=== PATIENT | male | born 1945 | race Caucasian/White ===

== ENCOUNTER → 2017-02-28 | Outpatient (CLI) | payer OTHER ==
--- NOTE | 2017-02-28 21:58 | DI ---
CT ABDOMEN SCAN WITHOUT AND WITH IV CONTRAST, 02/28/2017 12:24 PM : Clinical History: Umbilical hernia. Previous Exam: None at this facility. Scans are performed from the lower lung bases through the liver and kidneys without and with IV contr ast. Sagittal and coronal images are generated. 95 ml of Isovue 300 was injected IV. Low density oral barium contrast (Volumen - low density CT enterography oral contrast) was administered for all phase s of the exam. The pre-and postcontrast scans through the abdomen and pelvis were performed while the patient was performing a mild "situp" maneuver and the Valsalva maneuver. The lung bases are clear. The liver size is at the upper limits of normal. There is severe diffuse fa tty infiltration of the liver. The gallbladder is grossly normal. Both adrenal glands and the pancrea s are normal. Mild splenomegaly is present. Both kidneys are normal in size, shape, position and cont our. There is no hydronephrosis or hydroureter. No renal or ureteral calculi are present. There are n o abnormal retrocrural or periaortic nodes. There is no ascites. READIN. The liver size is at the upper limits of normal. There is diffuse severe fatty infiltration of th e liver. 2. Mild splenomegaly. CT PELVIS SCAN WITHOUT AND WITH IV CONTRAST, 02/28/2017 12:24 PM: Clinical History: Umbilical hernia. Previous Exam: None at this facility. Scans are performed from just superior to the umbilicus to the symphysis pubis without and with IV co ntrast. This is the same bolus of IV contrast used for the CT scans of the abdomen. Scans through the lower abdomen and pelvis show no masses or abnormal fluid collections. There is no adenopathy. The appendix is normal. The small bowel, terminal ileum, and ileocecal valve are intact. The colon is also normal. There is a very small umbilical hernia through which only a minimal amount of mesenteric fat has herniated. READIN. There is a very small umbilical hernia through which only a minimal amount of mesenteric fat has herniated. 2. The remainder of the examination is normal.
== END ==
LOC: CT 12:18
PROVIDERS: ATTEND Nurse Practitioner Acute Care
DX: K42.9 Umbilical hernia without obstruction or gangrene (principal); R16.1 Splenomegaly, not elsewhere classified
CPT/HCPCS: 74178

== ENCOUNTER → 2017-03-20 | Outpatient (CLI) | payer OTHER ==
--- NOTE | 2017-03-20 11:48 | PE ---
[facility] [place] Interpretive Statements [id number]
== END ==
LOC: RT 09:52
PROVIDERS: ATTEND Nurse Practitioner Acute Care
DX: J44.9 Chronic obstructive pulmonary disease, unspecified (principal)
CPT/HCPCS: 94060

== ENCOUNTER → 2017-06-23 | Outpatient (CLI) | payer OTHER ==
--- NOTE | 2017-06-23 16:13 | DI ---
History: dizziness. Impaired balance. Intermittent vision changes. Comparison: None Findings The cerebellar vermis is diminutive in size, and there is subsequent prominence of the cisterna magna . These findings can be seen on sagittal images, age 14 and 24, and T1 axial images, ages 6 and [age]. The ventricles and sulci are mildly prominent, but unremarkable for the patient's age There is no acute CVA. There is no hemorrhage. There are no space-occupying lesions and there is no mass effect. There are no extra-axial fluid collections There is mild opacification of right mastoid air cells which could indicate a acute or chronic mastoi ditis. Incidental is made of a 1 cm retention cyst in the right maxillary sinus. Postcontrast images demonstrate no enhancing lesions. 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 Th is finding is demonstrated best on series 401, image 12, and on series 601 images 5 and 6. Mild age related atrophic changes Mild opacification of the right mastoid air cells which could indicate acute or chronic mastoiditis 1 cm retention cyst in the right maxillary sinus
== END ==
LOC: MRI 10:09
PROVIDERS: ATTEND Nurse Practitioner Acute Care
DX: R26.9 Unspecified abnormalities of gait and mobility (principal); R42 Dizziness and giddiness; J34.1 Cyst and mucocele of nose and nasal sinus
CPT/HCPCS: 36415; 70553; 82565; 84520

== ENCOUNTER 2019-04-15 16:59 | Observation (INO) ==
[~2019-04-15 16:59] MED LIST: ACETAMINOPHEN 500 MG TABLET PO ONE; CELECOXIB 200 MG CAPSULE PO ONE; GABAPENTIN 300 MG CAPSULE PO ONE; LIDOCAINE W/ SODIUM BICARB 0.5 ML SYR ONE; LIDOCAINE W/ SODIUM BICARB 0.5 ML SYR SUBD ONE; Lactated Ringers 1,000 ML PRIMARY IV ONE; Lactated Ringers 1,000 ML PRIMARY IV SCH; Nasal Sanitizer POPSWAB ampule 3 AMP (Nozin) PREOP DOSE ENOS SCH; PANTOPRAZOLE 20 MG TABLET.DR PO ONE; ceFAZolin Inj 2gm (Premix) 2 GM/50 ML BAG IV ONE
[2019-04-15] MEDS ORDERED: DEXTROSE 50%-WATER SYRINGE 50 ML SYRINGE IVP ONE (17:25)
[2019-04-15] MEDS ORDERED: DEXTROSE 50%-WATER SYRINGE 50 ML SYRINGE ONE (17:49)
[2019-04-15] MEDS ORDERED: ROCURONIUM 10 MG/1 ML - 5 ML VIAL IVP ONE (19:29)
[2019-04-15] MEDS ORDERED: MIDAZOLAM HCL 2 MG/2 ML VIAL ONE (19:30)
[2019-04-15] MEDS ORDERED: fentaNYL Inj 250 MCG/5 ML VIAL ONE (19:30)
[2019-04-15] MEDS ORDERED: PROPOFOL 10 MG/1 ML (200 MG/20 ML) VIAL IV ONE (19:31)
[2019-04-15] MEDS ORDERED: D5-LR 1,000 ML PRIMARY IV ONE (19:58)
[2019-04-15] MEDS ORDERED: D5-LR 1,000 ML PRIMARY IV SCH (20:00)
[2019-04-15] MEDS ORDERED: BUPivacaine Inj 0.25% PF - 10ml vial ONE ×2 (20:11→22:09)
[2019-04-15] MEDS ORDERED: EPINEPHrine Inj (1:1,000) 30mg/30ml vial ONE (20:11)
[2019-04-15] MEDS ORDERED: BUPIVACAINE 0.5% W/EPI MPF -30 ML VIAL IV ONE (20:35)
[2019-04-15] MEDS ORDERED: Ropivacaine 0.2% VIAL 20 ML ONE (20:35)
[2019-04-15] MEDS ORDERED: ceFAZolin Inj 2gm (Premix) 2 GM/50 ML BAG IV ONE (21:46)
[2019-04-15] MEDS ORDERED: ePHEDrine Inj 50 MG/ML AMP ONE (21:48)
[2019-04-15] MEDS ORDERED: GLYCOPYRROLATE 0.2 MG/1 ML VIAL ONE (21:50)
[2019-04-15] MEDS ORDERED: TRANEXAMIC ACID 1,000 MG / 10 ML VIAL ONE (21:52)
[2019-04-15] MEDS ORDERED: Lactated Ringers 1,000 ML PRIMARY IV ONE (22:10)
[2019-04-15] MEDS ORDERED: BETAMET ACET/BETAMET NA PH 6 MG/1 ML - 5 ML ONE (22:10)
--- NOTE | 2019-04-15 23:16 | ORTHO.OP ---
Surgery Date: 04/15/19 Preoperative Diagnosis: right shoulder impingement, AC OA, SLAP tear, biceps tendinitis, partial RCT Postoperative Diagnosis: same Procedure: right shoulder scope TRACIE, A-Jj, A-tenodesis, debride SLAP and RCT Surgeon: Gio Walker MD Blender Operator: La Shin, PASophiaC Anesthesia Provider: Stacy Lu CRNA Anesthesia Type: General, Regional Estimated Blood Loss (mL): 15 Fluids: 1300 mL LR Pathology: none Findings: See Operative Note Indications: See Operative Note Complications: None
[2019-04-15] MEDS ORDERED: ONDANSETRON 4 MG/2 ML VIAL IVP PRN ×2 (23:17→23:38)
[2019-04-15] MEDS ORDERED: ATROPINE SULFATE 0.4 MG/1 ML VIAL IVP PRN (23:38)
[2019-04-15] MEDS ORDERED: LIDOCAINE W/ SODIUM BICARB 0.5 ML SYR SUBD PRN (23:38)
--- NOTE | 2019-04-15 23:38 | CRNA.PROGR ---
Anesthesia Time - Procedure/Recovery Time Start Date: 04/15/19 End Date: 04/15/19 Anesthesia : Time In: 21:05 Anesthesia : Time Out: 23:25 Anesthesia : Total Time: 140 - Block Time Start Date: 04/15/19 End Date: 04/15/19 PreOp Block : Time In: 20:40 PreOp Block : Time Out: 20:52 PreOp Block : Total Time: 12 - Total Anesthesia Time Total Anesthesia Time (minutes): 152 - Other Weight: 91.444 kg Height: 5 ft 8 in Body Mass Index (BMI): 30.6 Physical Status: P3 Anesthesia Type: General Anesthesia : ET PostOp Pain Management: Brachial Plexus (Single Injection) (Analgesia block)
--- NOTE | 2019-04-15 23:41 | CRNA.PROCE ---
Nerve Block Documentation - - Safety Measures: Time Out Taken, Site Verified - - Type of Nerve Block Used: Right Interscalene Block Position for Nerve Block: Supine Moniters Used During Block: EKG, SPO2, NIBP Oxygen Supplemented: Yes Sedation Used - Enter Amount in Comment Field [ANES.SEDAT]: Midazolam (mg): Yes (1), Fentanyl (mcg): Yes (100) Skin Prep Used: ChloroPrep (Twice) Technique: Nerve Stimulator Nerve Block Needle Used: 40 mm ProBlk II Stimulation Hz: 1 Stimulation Staring mA: 1.4 Stimulation Ending mA: 0.6 Local Anesthetic - Enter Amt in Comment Field [ANES.LOCNB]: 0.5 % Bupivicaine with Epinephrine 1:200,000 (mL): Yes (15), Other Anesthetic: Yes (Ropivicaine 0.7% 15 ml) - - PreOp Block : Time In: 20:40 PreOp Block : Time Out: 20:53 Anesthesia Time - Other Weight: 91.444 kg Height: 5 ft 8 in Body Mass Index (BMI): 30.6
--- NOTE | 2019-04-15 23:43 | CRNA.PROGR ---
Anesthesia Recovery Phase I - Post Anesthesia Evaluation Patient's Condition on Arrival in Phase I: Stable Patient's Condition on Arrival in Phase II: Stable Pain Level: 6 (medicated)
--- NOTE | 2019-04-15 23:43 | CRNA.PROGR ---
Post Anesthesia Phase II - Post Anesthesia Phase II Patient Stable and Discharged To: Phase II Care Assumed By Surgeon: Gio Walker MD Temperature: 98.1 F Pulse Rate: 66 Respiratory Rate: 13 Blood Pressure: 133/89 Pulse Ox: 93 Total Sofia Score at Discharge: 9 Post Anesthesia Discharge Criteria Met: Yes Additional Details: Going to [facility] overnight. does not want to drive to [place] in the dark.
[2019-04-15] MEDS: HYDROmorphone 2 MG/1 ML IVP PRN ×2 (23:45→23:51)
[2019-04-15] MEDS ORDERED: Lactated Ringers 1,000 ML PRIMARY IV SCH (23:45)
[2019-04-16] MEDS: HYDROmorphone 2 MG/1 ML IVP PRN (00:08)
[2019-04-16] MEDS ORDERED: ONDANSETRON 4 MG/2 ML VIAL IVP PRN (00:47)
[2019-04-16] MEDS ORDERED: HYDROcodone-APAP 7.5 MG-325 MG TABLET PO PRN (01:05)
[2019-04-16] MEDS ORDERED: Lactated Ringers 1,000 ML PRIMARY IV SCH (01:15)
[2019-04-16 07:19] VITALS: RESP 19; TEMP 97.3; O2SAT 91
[2019-04-16 09:00] VITALS: BP 143/86
--- NOTE | 2019-04-16 12:24 | ORTHO.PROG ---
Progress Note -: Vital Signs - Last Taken Temperature 97.3 F 04/16/19 07:10 Pulse Rate 79 04/16/19 07:10 Respiratory Rate 04/16/19 07:10 Blood Pressure 143/86 04/16/19 08:59 Pulse Ox 91 04/16/19 07:10 Subjective: - Postop Day [1] Objective: - Taking PO pain medication - Tolerating regular diet - No Olvera - voiding without difficulty - Ambulating - Vital Signs reviewed Assessment: - CMS intact dressing intact Plan: - Discharge home PT friday
--- NOTE | 2019-04-16 14:39 | OPS SHOULD ---
Diagnosis : Right Shoulder Biceps Tendon Debridement Referral Reason: Shoulder Cryo Cuff O: The patient was issued a cryo cuff for the right shoulder and instructed in its proper use and care. P: No further therapy is indicated at this time. The patient will begin outpatient physical therapy. ENRIQUETA
== END 2019-04-16 12:15 | disposition home or self-care (01) ==
LOC: OR 16:59 → MED/SURG 16:59 → OPS 17:00
PROVIDERS: ADMIT Orthopaedic Surgery; ATTEND Orthopaedic Surgery